=== PATIENT | male | born 1970 | race Caucasian/White ===

== ENCOUNTER 2016-06-22 16:32 | Outpatient (CLI) | payer OTHER ==
--- NOTE | 2016-06-22 19:24 | ULT ---
TESTICULAR ULTRASOUND: History: Right testicular nodule. Pain. Comparison: None. Technique: Grayscale, color flow, doppler imaging and spectral waveform analysis performed of the r ight and left testicle. FINDINGS: Right: Homogeneous echo texture. No masses. 2.7 x 4.0 x 2.2 cm. Epididymis has a normal echo sunil ture measuring 1.1 x 1.0 cm. At the tail of the epididymis, there is a large anechoic focus which m ay represent an cyst measuring 1.9 x 1.3 cm. There appears to be associated calcification. There is a small right sided hydrocele. Left: Homogeneous echo texture. No testicular masses. Left testicle measures 2.1 x 3.9 x 2.3 cm. Left epididymis had a normal echo texture measuring 1.1 x 0.8 cm. Testicular doppler: There is vascular flow to both testicles. There may be increased velocity in t he right hemiscrotum of uncertain significance. Correlate for orchitis. IMPRESSION: 1. Possible cyst and calcification in the tail of the right epididymis. Urology consultation recom mended. 2. Increased velocity in the right testicle. Correlate for orchitis. Note, there is vascular flow to both testicles. POS: [facility]
--- NOTE | 2016-06-23 07:32 | RAD ---
CHEST TWO VIEWS: Comparison: 11-11-15 History: COPD. Follow up exam. FINDINGS: Two views chest. Normal cardiac silhouette. Pulmonary vessels and hilum are normal. No mass, no c onsolidation, no pneumothorax or osseous abnormality. IMPRESSION: No acute cardiopulmonary process. POS: [facility]
== END 2016-06-22 16:33 | disposition home or self-care (01) ==
LOC: NAV ULT 16:32
PROVIDERS: ATTEND Specialist
DX: N50.89 Other specified disorders of the male genital organs (principal); J44.9 Chronic obstructive pulmonary disease, unspecified
CPT/HCPCS: 71020; 76870; 93976

== ENCOUNTER 2016-07-22 14:04 | Outpatient (CLI) | payer OTHER ==
--- NOTE | 2016-07-24 07:31 | RAD ---
PA AND LATERAL CHEST X-RAY 07/22/16 HISTORY: Disability evaluation. History of throat cancer. COMPARISON: 06/22/16 FINDINGS: The cardiac silhouette and pulmonary vasculature are within normal limits. The lungs are clear. Ther e has been no interval change from the prior study. IMPRESSION: No acute cardiopulmonary process. POS: [facility]
== END 2016-07-22 14:05 | disposition home or self-care (01) ==
LOC: NAV RAD 14:04
PROVIDERS: ATTEND Family Medicine
DX: Z02.71 Encounter for disability determination (principal)
CPT/HCPCS: 71020